=== PATIENT | male | born 1985 | race Caucasian/White ===

== ENCOUNTER 2020-10-12 17:13 | Emergency (ER) | payer OTHER ==
[2020-10-12] MEDS ORDERED: BACTRIM DS1 TAB PO (19:33)
[2020-10-12 20:00] VITALS: BP 120/70
== END 2020-10-12 20:02 | disposition home or self-care (01) | DRG 603 ==
LOC: ED 17:13
DX: L03.115 Cellulitis of right lower limb (principal); F17.210 Nicotine dependence, cigarettes, uncomplicated